=== PATIENT | male | born 1975 | race Caucasian/White ===

== ENCOUNTER 2017-10-22 07:09 | Day surgery (SDC) | payer BC ==
[~2017-10-22 07:09] MED LIST: Midazolam 1 MG/ML 2 ML SDV ONE; Propofol 200 MG/20 ML SDV ONE; fentaNYL 100 MCG/2 ML SDV ONE
[2017-10-22] MEDS ORDERED: Dextrose 5%-Lactated Ringers 1,000 ML IV SCH (07:30)
[2017-10-22] MEDS ORDERED: Glycopyrrolate 0.2 MG/ML 2 ML SDV IVPUSH ONE (07:30)
--- NOTE | 2017-10-31 14:57 | OR ---
DATE OF PROCEDURE: 10/22/2017 PREOPERATIVE DIAGNOSIS: Status post removal of laparoscopic adjustable gastric band due to gastric erosion. POSTOPERATIVE DIAGNOSES: 1. Status post removal of laparoscopic adjustable gastric band due to gastric erosion. 2. Persistent deformity of gastric cardia and a moderate-sized hiatal hernia. 3. Mild antral gastritis. OPERATIVE PROCEDURE: Esophagogastroduodenoscopy with antral biopsies for CLOtest. ANESTHESIA: IV sedation. INDICATION FOR PROCEDURE: The patient is status post removal of a laparoscopic adjustable gastric band due to problems with erosion. The plan at that time was to convert the patient from a lap band to gastric bypass status because of the acuteness of erosion. This was felt to be a staged procedure, and he presents now for consideration of completing the second stage of that conversion prior to this being set up. The plan is to proceed with upper endoscopy to evaluate the current anatomy. Potential risks including bleeding and perforation were discussed, and the patient wishes to proceed. DESCRIPTION OF PROCEDURE: The patient was taken to the operating room and placed in the left lateral decubitus position. IV sedation was administered, after which the upper GI endoscope was passed orally through the length of the esophagus and into the stomach with retroflexion view of the fundus, thereafter through the pyloric channel, and into the proximal duodenum. The patient was noted to have a normal upper esophageal sphincter and esophageal body. The patient did have a moderate-sized hiatal hernia present with roughly 3 to 4 cm upward extension of the esophagogastric junction above the level of the diaphragm. The patient did have some persistent deformity of the gastric cardia likely where the band had been placed, but otherwise things appeared to have healed well. There was some scattered antral gastritis. Otherwise, the pyloric channel and duodenum were unremarkable. At this point, biopsies were obtained from the antrum and sent for CLOtest for H. pylori, and minimal bleeding from the biopsy sites was seen, and the procedure was then concluded. The patient was taken to the recovery room in satisfactory condition. At this point, the patient would appear to be a good candidate for conversion to Placido-en-Y gastric bypass and a concurrent repair of the diaphragmatic hernia. Jerome Heath MD Job #: [id number]
== END 2017-10-22 10:47 | disposition home or self-care (01) ==
LOC: JP.SDS 07:09
PROVIDERS: ATTEND Surgery
DX: K95.09 Other complications of gastric band procedure (principal); K29.70 Gastritis, unspecified, without bleeding; K44.9 Diaphragmatic hernia without obstruction or gangrene; I10 Essential (primary) hypertension; E66.01 Morbid (severe) obesity due to excess calories; E78.5 Hyperlipidemia, unspecified; G47.33 Obstructive sleep apnea (adult) (pediatric)
CPT/HCPCS: 43239; 87081; J2250; J2704; J3010; J7042; J3490